=== PATIENT | male | born 1955 | race Two or more races ===

== ENCOUNTER → 2017-10-07 | Outpatient (REF) | payer OTHER ==
[2017-10-07 16:55] LABS: BASO % 0.5 % (0.0-1.0); EOS # 0.3 10^3/uL (0.0-0.50); EOS % 3.3 % (0.0-3.0); IMMATURE GRANULOCYTE % 0.3 % (0-0); LYMPH # 1.6 10^3/uL (1.5-4.5); LYMPH % 20.4 % (24.0-44.0); MEAN CORPUSCULAR HGB CONC 32.5 g/dl (32.0-36.5); MEAN CORPUSCULAR VOLUME 86.1 fl (80.0-96.0); MONO # 0.6 10^3/uL (0.0-0.8); MONO % 7.9 % (0.0-5.0); NEUTROPHILS # 5.1 10^3/uL (1.8-7.7); NEUTROPHILS % 67.6 % (36.0-66.0); PLATELET COUNT, AUTOMATED 270 10^3/uL (150-450); RED CELL DISTRIBUTION WIDTH 12.6 % (11.5-14.5); WHITE BLOOD COUNT 7.6 10^3/uL (4.0-10.0)
[2017-10-07 17:41] LABS: ALBUMIN/GLOBULIN RATIO 1.43 (1.00-1.93); ALKALINE PHOSPHATASE 90 U/L (45-117); ALT/SGPT 25 U/L (12-78); ANION GAP 9 MEQ/L (8-16); AST/SGOT 20 U/L (7-37); BILIRUBIN,TOTAL 0.4 MG/DL (0.2-1.0); BLOOD UREA NITROGEN 14 MG/DL (7-18); CARBON DIOXIDE LEVEL 30 MEQ/L (21-32); CHLORIDE LEVEL 103 MEQ/L (98-107); CHOLESTEROL LEVEL 239 MG/DL (<200); CREATININE FOR GFR 0.84 MG/DL (0.70-1.30); GLOMERULAR FILTRATION RATE > 60.0 (>49); GLUCOSE, FASTING 87 MG/DL (80-110); POTASSIUM SERUM 4.1 MEQ/L (3.5-5.1); SODIUM LEVEL 142 MEQ/L (136-145); TOTAL PROTEIN 6.8 GM/DL (6.4-8.2); TRIGLYCERIDES LEVEL 268 MG/DL (<150)
== END ==
LOC: M SFHCCAPE 07:49
PROVIDERS: ATTEND Physician Assistant
DX: F41.9 Anxiety disorder, unspecified (principal); E66.09 Other obesity due to excess calories; Z68.30 Body mass index [BMI] 30.0-30.9, adult; Z12.5 Encounter for screening for malignant neoplasm of prostate

== ENCOUNTER → 2018-02-24 | Outpatient (CLI) | payer OTHER ==
[~2018-02-24] MED LIST: ISOVUE-370 76% 100ML VIAL (Q9967) As Ordered
== END ==
LOC: M RAD 15:14
DX: R59.0 Localized enlarged lymph nodes (principal)
CPT/HCPCS: Q9967

== ENCOUNTER → 2018-03-04 | Outpatient (CLI) | payer OTHER | LOC: M RAD 12:23 | DX: M51.26 Other intervertebral disc displacement, lumbar region (principal); M47.816 Spondylosis without myelopathy or radiculopathy, lumbar region | CPT/HCPCS: 72148 ==

== ENCOUNTER → 2019-01-22 | Outpatient (REF) | payer OTHER | LOC: M SFHCPLAZ 18:28 | PROVIDERS: ATTEND Dermatology | DX: D23.4 Other benign neoplasm of skin of scalp and neck (principal) ==

== ENCOUNTER → 2019-03-03 | Outpatient (REF) | payer OTHER ==
[2019-03-03 17:02] LABS: BASO % 0.5 % (0.0-1.0); EOS # 0.2 10^3/uL (0.0-0.50); EOS % 2.7 % (0.0-3.0); HEMATOCRIT 48.1 % (42.0-52.0); HEMOGLOBIN 15.7 g/dl (13.5-17.5); LYMPH # 1.6 10^3/uL (1.5-4.5); LYMPH % 20.2 % (24.0-44.0); MEAN CORPUSCULAR HEMOGLOBIN 28.3 pg (27.0-33.0); MEAN CORPUSCULAR HGB CONC 32.6 g/dl (32.0-36.5); MEAN CORPUSCULAR VOLUME 86.8 fl (80.0-96.0); MONO # 0.6 10^3/uL (0.0-0.8); NEUTROPHILS # 5.4 10^3/uL (1.8-7.7); NEUTROPHILS % 69.2 % (36.0-66.0); PLATELET COUNT, AUTOMATED 250 10^3/uL (150-450); RED BLOOD COUNT 5.54 10^6/uL (4.30-6.10); WHITE BLOOD COUNT 7.8 10^3/uL (4.0-10.0)
[2019-03-03 17:18] LABS: ALBUMIN 4.1 GM/DL (3.2-5.2); ALT/SGPT 30 U/L (12-78); BILIRUBIN,TOTAL 0.8 MG/DL (0.2-1.0); BLOOD UREA NITROGEN 15 MG/DL (7-18); C REACTIVE PROTEIN QUANTITATIV < 0.30 MG/DL (0.00-0.30); CALCIUM LEVEL 8.4 MG/DL (8.8-10.2); CARBON DIOXIDE LEVEL 26 MEQ/L (21-32); CHLORIDE LEVEL 107 MEQ/L (98-107); CHOLESTEROL LEVEL 233 MG/DL (<200); CHOLESTEROL RISK RATIO 4.236 (<5); CREATININE FOR GFR 0.85 MG/DL (0.70-1.30); GLOMERULAR FILTRATION RATE > 60.0 (>49); GLUCOSE, FASTING 91 MG/DL (70-100); HDL CHOLESTEROL 55 MG/DL (>40); LDL CHOLESTEROL 158 MG/DL (<100); NON-HDL-C 178 MG/DL; POTASSIUM SERUM 4.1 MEQ/L (3.5-5.1); RHEUMATOID FACTOR QUANT < 10.0 IU/ML (<15.0); SODIUM LEVEL 140 MEQ/L (136-145); THYROID STIMULATING HORMONE 0.633 uIU/ML (0.358-3.740); TOTAL PROTEIN 6.5 GM/DL (6.4-8.2); TRIGLYCERIDES LEVEL 101 MG/DL (<150)
[2019-03-03 18:03] LABS: ERYTHROCYTE SEDIMENTATION RATE 2 mm/hr (0-20)
[2019-03-06 00:07] LABS: ANA (HEP2) Negative (.); CYCLIC CITRULLINATED PEPTIDE 14 units (0-19); ENDOMYSIAL ABY IgA Negative (Negative); Lyme Disease IgG/IgM Antibodie <0.91 ISR (0.00-0.90); Lyme Disease IgM Ab Quantitati <0.80 index (0.00-0.79)
== END ==
LOC: M SFHCCAPE 10:37
PROVIDERS: ATTEND Physician Assistant
DX: R21 Rash and other nonspecific skin eruption (principal); E78.1 Pure hyperglyceridemia; R19.4 Change in bowel habit

== ENCOUNTER → 2019-11-03 | Outpatient (REF) | payer OTHER | LOC: M LAB REF 19:04 | PROVIDERS: ATTEND Dermatology | DX: L30.9 Dermatitis, unspecified (principal) ==

== ENCOUNTER → 2020-04-04 | Outpatient (REF) | payer OTHER ==
[2020-04-04 11:43] LABS: BASO # 0.1 10^3/uL (0.0-0.2); BASO % 0.7 % (0.0-1.0); EOS # 0.3 10^3/uL (0.0-0.5); EOS % 3.9 % (0.0-3.0); HEMATOCRIT 46.3 % (42.0-52.0); LYMPH # 1.7 10^3/uL (1.5-5.0); LYMPH % 24.3 % (24.0-44.0); MEAN CORPUSCULAR HEMOGLOBIN 28.1 pg (27.0-33.0); MEAN CORPUSCULAR HGB CONC 32.4 g/dl (32.0-36.5); MEAN CORPUSCULAR VOLUME 86.7 fl (80.0-96.0); MONO # 0.6 10^3/uL (0.0-0.8); MONO % 8.3 % (0.0-5.0); NEUTROPHILS # 4.4 10^3/uL (1.5-8.5); NEUTROPHILS % 62.5 % (36.0-66.0); PLATELET COUNT, AUTOMATED 249 10^3/uL (150-450); RED BLOOD COUNT 5.34 10^6/uL (4.30-6.10)
[2020-04-04 12:00] LABS: ALBUMIN 3.7 GM/DL (3.2-5.2); ALT/SGPT 21 U/L (12-78); BILIRUBIN,TOTAL 0.6 MG/DL (0.2-1.0); BLOOD UREA NITROGEN 16 MG/DL (7-18); CALCIUM LEVEL 8.7 MG/DL (8.8-10.2); CARBON DIOXIDE LEVEL 29 MEQ/L (21-32); CHLORIDE LEVEL 106 MEQ/L (98-107); CHOLESTEROL LEVEL 217 MG/DL (<200); CHOLESTEROL RISK RATIO 4.822 (<5); CREATININE FOR GFR 0.72 MG/DL (0.70-1.30); FREE T4 0.96 NG/DL (0.76-1.46); GLOMERULAR FILTRATION RATE > 60.0 (>49); GLUCOSE, FASTING 95 MG/DL (70-100); HDL CHOLESTEROL 45 MG/DL (>40); LDL CHOLESTEROL 133 MG/DL (<100); NON-HDL-C 172 MG/DL; POTASSIUM SERUM 4.2 MEQ/L (3.5-5.1); SODIUM LEVEL 139 MEQ/L (136-145); THYROID STIMULATING HORMONE 0.765 uIU/ML (0.358-3.740); TOTAL PROTEIN 6.3 GM/DL (6.4-8.2); TRIGLYCERIDES LEVEL 195 MG/DL (<150)
[2020-04-04 12:26] LABS: HEMOGLOBIN A1c 5.9 %
[2020-04-04 12:34] LABS: TOTAL 25(OH) VITAMIN D 47.1 NG/ML (30.0-100.0)
== END ==
LOC: M SFHCCLAY 08:29
PROVIDERS: ATTEND Physician Assistant
DX: E78.1 Pure hyperglyceridemia (principal); Z68.30 Body mass index [BMI] 30.0-30.9, adult

== ENCOUNTER → 2021-01-19 | Outpatient (CLI) | payer MEDICARE, OTHER ==
--- NOTE | 2021-01-19 16:15 | REP ---
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 COMPARISON: Comparison chest x-ray January 04, 2009. TECHNIQUE: Two views.. FINDINGS: The lungs are well inflated and free of infiltrate. The pleural angles are sharp. The heart size is normal. Pulmonary vasculature is not increased. No significant bony abnormality is seen. Thoracic aorta is somewhat tortuous. There is an orthopedic anchor in the right shoulder. IMPRESSION: No active disease.. <Electronically signed by Luca Gusman > 01/19/21 [id number]
== END ==
LOC: M CLY 14:35
PROVIDERS: ATTEND Nurse Practitioner Family
DX: Z01.818 Encounter for other preprocedural examination (principal); G47.33 Obstructive sleep apnea (adult) (pediatric); M17.11 Unilateral primary osteoarthritis, right knee

== ENCOUNTER → 2021-01-19 | Outpatient (REF) | payer MEDICARE ==
[2021-01-20 11:47] LABS: BASO # 0.1 10^3/uL (0.0-0.2); BASO % 0.8 % (0.0-1.0); EOS # 0.2 10^3/uL (0.0-0.5); EOS % 2.3 % (0.0-3.0); HEMATOCRIT 49.1 % (42.0-52.0); HEMOGLOBIN 16.1 g/dl (13.5-17.5); LYMPH # 1.7 10^3/uL (1.5-5.0); LYMPH % 20.2 % (24.0-44.0); MEAN CORPUSCULAR HEMOGLOBIN 28.5 pg (27.0-33.0); MEAN CORPUSCULAR HGB CONC 32.8 g/dl (32.0-36.5); MEAN CORPUSCULAR VOLUME 86.9 fl (80.0-96.0); MONO # 0.7 10^3/uL (0.0-0.8); NEUTROPHILS # 5.7 10^3/uL (1.5-8.5); NEUTROPHILS % 68.5 % (36.0-66.0); PLATELET COUNT, AUTOMATED 277 10^3/uL (150-450); RED BLOOD COUNT 5.65 10^6/uL (4.30-6.10); WHITE BLOOD COUNT 8.3 10^3/uL (4.0-10.0)
[2021-01-20 12:04] LABS: HEMOGLOBIN A1c 5.3 %
[2021-01-20 12:33] LABS: ALT/SGPT 23 U/L (12-78); BILIRUBIN,TOTAL 0.2 MG/DL (0.2-1.0); BLOOD UREA NITROGEN 15 MG/DL (7-18); CALCIUM LEVEL 8.9 MG/DL (8.8-10.2); CARBON DIOXIDE LEVEL 26 MEQ/L (21-32); CHLORIDE LEVEL 108 MEQ/L (98-107); CHOLESTEROL LEVEL 219 MG/DL (<200); CHOLESTEROL RISK RATIO 5.214 (<5); CREATININE FOR GFR 0.82 MG/DL (0.70-1.30); FREE T4 0.93 NG/DL (0.76-1.46); GLOMERULAR FILTRATION RATE > 60.0 (>49); GLUCOSE, FASTING 84 MG/DL (70-100); HDL CHOLESTEROL 42 MG/DL (>40); LDL CHOLESTEROL 113 MG/DL (<100); NON-HDL-C 177 MG/DL; SODIUM LEVEL 141 MEQ/L (136-145); THYROID STIMULATING HORMONE 0.591 uIU/ML (0.358-3.740); TOTAL PROTEIN 6.6 GM/DL (6.4-8.2); TRIGLYCERIDES LEVEL 322 MG/DL (<150)
== END ==
LOC: M SFHCCLAY 13:36
PROVIDERS: ATTEND Nurse Practitioner Family
DX: M17.11 Unilateral primary osteoarthritis, right knee (principal); R73.09 Other abnormal glucose; E78.1 Pure hyperglyceridemia
CPT/HCPCS: 80053; 80061; 83036; 84439; 84443; 85025; G0463

== ENCOUNTER → 2021-01-24 | Outpatient (REF) | payer MEDICARE ==
[2021-01-24 15:50] LABS: INR 0.86; PROTHROMBIN TIME 11.9 SECONDS (12.5-14.3)
== END ==
LOC: M PLALAB 15:01
PROVIDERS: ATTEND Orthopaedic Surgery
DX: M17.11 Unilateral primary osteoarthritis, right knee (principal); Z79.01 Long term (current) use of anticoagulants

== ENCOUNTER → 2021-09-29 | Outpatient (CLI) | payer MEDICARE ==
[~2021-09-29] MED LIST changes: +ISOVUE-300 61% 50ML VIAL As Ordered ONE; -ISOVUE-370 76% 100ML VIAL (Q9967) As Ordered; +LIDOCAINE 1% MDV 20ML VIAL As Ordered ONE; +TRIAMCINOLONE ACETONIDE SUSP 40 MG/ML VIAL (J3301) As Ordered ONE
--- NOTE | 2021-09-29 17:40 | REP ---
INDICATION: OSTEOARTHRITIS RT SHOULDER. COMPARISON: None TECHNIQUE: The procedure was performed by CAROLINE Ag, under the direct supervision of Dr. Ye. The benefits and risks of the procedure were explained to the patient, and an informed consent was obtained. Directly prior to the start of the procedure, a formal time-out was completed in the procedure room. The right shoulder joint space was localized using fluoroscopic guidance. The skin was prepped and draped in a sterile fashion. Approximately 5 mL of 1% Lidocaine 10 mg/ml was used as a local anesthetic. Using fluoroscopic guidance, a #22 gauge spinal needle was inserted and advanced into the right shoulder joint space. Approximately 2 mL of Isovue 300 was injected to verify placement. Six mL of a solution containing 5 mL 1% lidocaine 10 mg/ml and 1 mL Kenalog 40 mg/mL was injected into the joint space. The needle was removed and hemostasis was achieved. FINDINGS: The patient tolerated the procedure well and there were no immediate complications. IMPRESSION: 1. Technically successful right shoulder injection. 0.1 minutes of fluoroscopy time was utilized for this procedure. Some fluoroscopic images are performed with last image hold technology. These images require no additional radiation. <Electronically signed by Belle Villareal > 09/29/21 [id number] <Electronically signed by Gilberto Ye > 09/29/21 [id number]
== END ==
LOC: M RADPRO 10:43
PROVIDERS: ATTEND Physician Assistant
DX: M19.011 Primary osteoarthritis, right shoulder (principal)
CPT/HCPCS: 20610; 77002; J3301; Q9967

== ENCOUNTER → 2021-12-25 | Outpatient (CLI) | payer MEDICARE | LOC: M PLAIMG 09:00 | PROVIDERS: ATTEND Orthopaedic Surgery | DX: M54.12 Radiculopathy, cervical region (principal); M50.30 Other cervical disc degeneration, unspecified cervical region; M48.02 Spinal stenosis, cervical region; M25.78 Osteophyte, vertebrae; M47.812 Spondylosis without myelopathy or radiculopathy, cervical region ==

== ENCOUNTER → 2022-01-09 | Outpatient (CLI) | payer MEDICARE | LOC: M RAD 10:47 | PROVIDERS: ATTEND Physician Assistant Medical | DX: R06.02 Shortness of breath (principal); R05.9 Cough, unspecified ==

== ENCOUNTER → 2022-02-28 | Outpatient (CLI) | payer MEDICARE ==
[~2022-02-28] MED LIST changes: +A-10CAP2 PO; +ALBU8.5H INH; +ALBU83IN INH; +ALPR1TAB3 PO; +CYCL-707 PO; +FLUC150T9 PO; +GABA-1171 PO; -ISOVUE-300 61% 50ML VIAL As Ordered ONE; +K2 P1TAB PO; -LIDOCAINE 1% MDV 20ML VIAL As Ordered ONE; +MELO15TA28 PO; +SERT50TA29 PO; -TRIAMCINOLONE ACETONIDE SUSP 40 MG/ML VIAL (J3301) As Ordered ONE; +VITA-243 PO
== END ==
LOC: M LABSMTC 09:30
PROVIDERS: ATTEND Anesthesiology
DX: Z01.818 Encounter for other preprocedural examination (principal); Z11.52 Encounter for screening for COVID-19

== ENCOUNTER → 2022-02-28 | Outpatient (CLI) | payer MEDICARE ==
[2022-02-28 13:40] LABS: BASO % 0.4 % (0.0-1.0); EOS # 0.3 10^3/uL (0.0-0.5); EOS % 3.7 % (0.0-3.0); HEMATOCRIT 48.4 % (42.0-52.0); HEMOGLOBIN 15.5 g/dl (13.5-17.5); LYMPH # 1.4 10^3/uL (1.5-5.0); LYMPH % 20.4 % (24.0-44.0); MEAN CORPUSCULAR HEMOGLOBIN 28.5 pg (27.0-33.0); MEAN CORPUSCULAR VOLUME 89.1 fl (80.0-96.0); MONO # 0.6 10^3/uL (0.0-0.8); MONO % 9.2 % (2.0-8.0); NEUTROPHILS # 4.5 10^3/uL (1.5-8.5); PLATELET COUNT, AUTOMATED 277 10^3/uL (150-450); RED BLOOD COUNT 5.43 10^6/uL (4.30-6.10); WHITE BLOOD COUNT 6.8 10^3/uL (4.0-10.0)
[2022-02-28 18:42] LABS: ALT/SGPT 25 U/L (12-78); BILIRUBIN,TOTAL 0.5 MG/DL (0.2-1.0); BLOOD UREA NITROGEN 21 MG/DL (7-18); CALCIUM LEVEL 9.6 MG/DL (8.8-10.2); CARBON DIOXIDE LEVEL 29 MEQ/L (21-32); CHLORIDE LEVEL 107 MEQ/L (98-107); CHOLESTEROL LEVEL 248 MG/DL (<200); CHOLESTEROL RISK RATIO 4.862 (<5); CREATININE FOR GFR 0.74 MG/DL (0.70-1.30); GLOMERULAR FILTRATION RATE > 60.0 (>49); GLUCOSE, FASTING 98 MG/DL (70-100); HDL CHOLESTEROL 51 MG/DL (>40); LDL CHOLESTEROL 176 MG/DL (<100); NON-HDL-C 197 MG/DL; POTASSIUM SERUM 4.4 MEQ/L (3.5-5.1); SODIUM LEVEL 141 MEQ/L (136-145); TOTAL 25(OH) VITAMIN D 68.7 NG/ML (30.0-100.0); TOTAL PROTEIN 6.2 GM/DL (6.4-8.2); TRIGLYCERIDES LEVEL 106 MG/DL (<150)
[2022-02-28 21:58] LABS: HEMOGLOBIN A1c 5.4 %
== END ==
LOC: M PLALAB 09:12
PROVIDERS: ATTEND Physician Assistant
DX: E78.1 Pure hyperglyceridemia (principal); R73.09 Other abnormal glucose; Z12.5 Encounter for screening for malignant neoplasm of prostate; Z79.899 Other long term (current) drug therapy
CPT/HCPCS: 36415; 80053; 80061; 82306; 83036; 84443; 85025; 87426; G0103

== ENCOUNTER 2022-03-01 07:09 | Day surgery (SDC) | payer MEDICARE ==
[~2022-03-01] VITALS: Ht 175.3 cm; Wt 88.6 kg
[~2022-03-01 07:09] MED LIST changes: -A-10CAP2 PO; -ALBU8.5H INH; -ALBU83IN INH; +ALBUTEROL SULFATE 2.5 MG/0.5 ML INH NEB SOLN INH ONE; -FLUC150T9 PO; -K2 P1TAB PO; +LIDOCAINE 1% MDV 20ML VIAL As Ordered ONE; +LIDOCAINE 4% INJ 5ML AMP INH ONE; +LR 1,000 ML IV ONE; -MELO15TA28 PO; -SERT50TA29 PO; +THROMBIN SOLN 5,000 UNITS VIAL As Ordered ONE; -VITA-243 PO
[2022-03-01] MEDS ORDERED: EPINEPHrine 1MG/10ML SYRINGE 1.5IN As Ordered ONE (07:10)
[2022-03-01] MEDS ORDERED: CETACAINE SPRAY 5GM As Ordered ONE (07:10)
[2022-03-01] MEDS ORDERED: LIDOCAINE VISCOUS 2% SOLN 15ML UDC As Ordered ONE (07:10)
[2022-03-01 08:19] LABS: INR 0.97; PROTHROMBIN TIME 13.3 SECONDS (12.7-14.5)
[2022-03-01 08:20] LABS: PARTIAL THROMBOPLASTIN TIME 28.2 SECONDS (25.9-37.0)
[2022-03-01] MEDS ORDERED: A-10CAP2 PO (08:20)
[2022-03-01] MEDS ORDERED: FLUC150T9 PO (08:20)
[2022-03-01] MEDS ORDERED: ALBU83IN INH (08:20)
[2022-03-01] MEDS ORDERED: ALBU8.5H INH (08:20)
[2022-03-01] MEDS ORDERED: K2 P1TAB PO (08:20)
[2022-03-01] MEDS ORDERED: SERT50TA29 PO (08:20)
[2022-03-01] MEDS ORDERED: VITA-243 PO (08:20)
[2022-03-01] MEDS ORDERED: MELO15TA28 PO (08:20)
[2022-03-01] MEDS ORDERED: LIDOCAINE 2% 100MG/5ML SDV (FOR ANES.) As Ordered ONE (09:06)
[2022-03-01] MEDS ORDERED: fentaNYL 100 MCG/2 ML INJECTION As Ordered ONE (09:06)
[2022-03-01] MEDS ORDERED: MIDAZOLAM INJ 2MG/2ML VIAL (J2250 PER 1MG) As Ordered ONE (09:06)
[2022-03-01] MEDS ORDERED: ROCURONIUM BROMIDE 50 MG/5 ML VIAL As Ordered ONE (09:06)
[2022-03-01] MEDS ORDERED: propofoL 200 MG/20 ML VIAL As Ordered ONE (09:06)
[2022-03-01] MEDS ORDERED: ACETAMINOPHEN 1000MG 100ML IV BTL (OFIRMEV) (J0131 PER 10MG) As Ordered ONE (09:44)
[2022-03-01] MEDS ORDERED: SUGAMMADEX SODIUM 500 MG/5 ML VIAL (BRIDION) As Ordered ONE (10:32)
[2022-03-01] MEDS ORDERED: LR 1,000 ML IV SCH (10:50)
[2022-03-01] MEDS ORDERED: ONDANSETRON 4MG/2ML VIAL IV PRN (10:50)
[2022-03-01] MEDS ORDERED: ALBUTEROL SULFATE 2.5 MG/0.5 ML INH NEB SOLN INH ONE (10:50)
[2022-03-01] MEDS ORDERED: fentaNYL 100 MCG/2 ML INJECTION IV PRN (10:50)
[2022-03-01 11:10] VITALS: BP 127/71
== END 2022-03-01 11:40 | disposition home or self-care (01) ==
LOC: M SDC 07:09
PROVIDERS: ATTEND Internal Medicine Pulmonary Disease
DX: R59.0 Localized enlarged lymph nodes (principal); G47.00 Insomnia, unspecified; N40.0 Benign prostatic hyperplasia without lower urinary tract symptoms; Z79.899 Other long term (current) drug therapy; F41.9 Anxiety disorder, unspecified
CPT/HCPCS: 31622; 31654; 36415; 71045; 85610; 85730; 87070; 87102; 87116; 87205; 87206; 88173; 88305; J0131; J2250; J3010

== ENCOUNTER → 2022-03-08 | Outpatient (CLI) | payer MEDICARE ==
[~2022-03-08] MED LIST changes: +A-10CAP2 PO; +ALBU8.5H INH; +ALBU83IN INH; -ALBUTEROL SULFATE 2.5 MG/0.5 ML INH NEB SOLN INH ONE; +FLUC150T9 PO; +K2 P1TAB PO; -LIDOCAINE 1% MDV 20ML VIAL As Ordered ONE; -LIDOCAINE 4% INJ 5ML AMP INH ONE; -LR 1,000 ML IV ONE; +MELO15TA28 PO; +SERT50TA29 PO; -THROMBIN SOLN 5,000 UNITS VIAL As Ordered ONE; +VITA-243 PO
[2022-03-08 09:30] LABS: BASO % 0.7 % (0.0-1.0); EOS # 0.3 10^3/uL (0.0-0.5); EOS % 4.8 % (0.0-3.0); HEMATOCRIT 46.3 % (42.0-52.0); HEMOGLOBIN 15.2 g/dl (13.5-17.5); LYMPH # 1.1 10^3/uL (1.5-5.0); LYMPH % 19.9 % (24.0-44.0); MEAN CORPUSCULAR HEMOGLOBIN 28.6 pg (27.0-33.0); MEAN CORPUSCULAR HGB CONC 32.8 g/dl (32.0-36.5); MONO # 0.5 10^3/uL (0.0-0.8); NEUTROPHILS # 3.6 10^3/uL (1.5-8.5); NEUTROPHILS % 65.4 % (36.0-66.0); PLATELET COUNT, AUTOMATED 241 10^3/uL (150-450); RED BLOOD COUNT 5.32 10^6/uL (4.30-6.10); WHITE BLOOD COUNT 5.6 10^3/uL (4.0-10.0)
[2022-03-08 10:06] LABS: ALBUMIN 3.8 GM/DL (3.2-5.2); ALT/SGPT 21 U/L (12-78); BILIRUBIN,DIRECT < 0.1 MG/DL (0.0-0.2); BILIRUBIN,TOTAL 0.3 MG/DL (0.2-1.0); CALCIUM LEVEL 8.7 MG/DL (8.8-10.2); CREATININE FOR GFR 0.74 MG/DL (0.70-1.30); GLOMERULAR FILTRATION RATE > 60.0 (>49); TOTAL PROTEIN 6.1 GM/DL (6.4-8.2)
== END ==
LOC: M PLALAB 08:21 → M LAB 08:21
PROVIDERS: ATTEND Internal Medicine Pulmonary Disease
DX: R91.8 Other nonspecific abnormal finding of lung field (principal)

== ENCOUNTER → 2022-04-04 | Outpatient (REF) | payer MEDICARE, OTHER ==
[~2022-04-04] MED LIST changes: +ALBU2.5V10 INH; -ALBU83IN INH
[2022-04-04 16:43] LABS: BLOOD UREA NITROGEN 19 MG/DL (7-18); CREATININE FOR GFR 0.76 MG/DL (0.70-1.30); GLOMERULAR FILTRATION RATE > 60.0 (>49)
== END ==
LOC: M LABDRWCV 15:45
PROVIDERS: ATTEND Physician Assistant Medical
DX: G95.0 Syringomyelia and syringobulbia (principal)

== ENCOUNTER → 2022-04-09 | Outpatient (CLI) | payer MEDICARE, OTHER | LOC: M PLARAD 10:56 | PROVIDERS: ATTEND Internal Medicine Pulmonary Disease | DX: R59.0 Localized enlarged lymph nodes (principal); R91.8 Other nonspecific abnormal finding of lung field; C79.89 Secondary malignant neoplasm of other specified sites | CPT/HCPCS: 78815; A9552 ==

== ENCOUNTER → 2022-04-20 | Outpatient (CLI) | payer MEDICARE ==
[~2022-04-20] MED LIST changes: +PROHANCE 279.3MG/ML 15ML VIAL As Ordered ONE; +PROHANCE 279.3MG/ML 5ML VIAL As Ordered ONE
== END ==
LOC: M RAD 11:50
PROVIDERS: ATTEND Physician Assistant Medical
DX: G95.0 Syringomyelia and syringobulbia (principal); M79.601 Pain in right arm; M54.6 Pain in thoracic spine; M79.604 Pain in right leg
CPT/HCPCS: 72141; 72146; 72148; A9576

== ENCOUNTER → 2022-04-23 | Outpatient (CLI) | payer MEDICARE ==
[~2022-04-23] MED LIST changes: -PROHANCE 279.3MG/ML 15ML VIAL As Ordered ONE; +PROHANCE 279.3MG/ML 15ML VIAL ONE; -PROHANCE 279.3MG/ML 5ML VIAL As Ordered ONE; +PROHANCE 279.3MG/ML 5ML VIAL ONE
== END ==
LOC: M PLAIMG 11:06
PROVIDERS: ATTEND Otolaryngology
DX: R22.1 Localized swelling, mass and lump, neck (principal)
CPT/HCPCS: 70543; A9576

== ENCOUNTER → 2022-05-09 | Outpatient (CLI) | payer MEDICARE | LOC: M PLAIMG 07:48 | PROVIDERS: ATTEND Physician Assistant Medical | DX: M51.36 Other intervertebral disc degeneration, lumbar region (principal); M43.06 Spondylolysis, lumbar region; M54.6 Pain in thoracic spine; G95.0 Syringomyelia and syringobulbia; M79.604 Pain in right leg; M79.605 Pain in left leg | CPT/HCPCS: 72142; 72147; 72149; A9576 ==

== ENCOUNTER → 2022-07-22 | Outpatient (CLI) | payer MEDICARE ==
[~2022-07-22] MED LIST changes: -PROHANCE 279.3MG/ML 15ML VIAL ONE; -PROHANCE 279.3MG/ML 5ML VIAL ONE
== END ==
LOC: M LABSMTC 10:39
PROVIDERS: ATTEND Neurological Surgery
DX: Z20.822 Contact with and (suspected) exposure to COVID-19 (principal)

== ENCOUNTER → 2022-10-10 | Outpatient (CLI) | payer OTHER | LOC: M LABSMTC 09:35 | PROVIDERS: ATTEND Psychiatry & Neurology Neurology | DX: Z01.818 Encounter for other preprocedural examination (principal); Z11.52 Encounter for screening for COVID-19 ==

== ENCOUNTER → 2022-11-01 | Outpatient (CLI) | payer MEDICAID, MEDICARE ==
[~2022-11-01] MED LIST changes: +GABA-283 PO
== END ==
LOC: M ONCR 07:46
PROVIDERS: ATTEND General Practice
DX: C72.0 Malignant neoplasm of spinal cord (principal); Z79.1 Long term (current) use of non-steroidal anti-inflammatories (NSAID); Z79.899 Other long term (current) drug therapy

== ENCOUNTER → 2022-11-27 | Outpatient (RCR) | payer MEDICARE | LOC: M ONCR 11-09 13:18 | PROVIDERS: ATTEND General Practice | DX: C72.0 Malignant neoplasm of spinal cord (principal) ==

== ENCOUNTER → 2022-12-25 | Outpatient (RCR) | payer MEDICARE ==
[~2022-12-25] MED LIST changes: +DEXA4TA PO; +DULO1CAP6 PO
== END ==
LOC: M ONCR 11-28 10:43
PROVIDERS: ATTEND General Practice
DX: C72.0 Malignant neoplasm of spinal cord (principal)

== ENCOUNTER 2023-01-04 09:52 | Outpatient (RCR) | payer MEDICARE | END 2023-01-25 | LOC: M ONCR 09:52 | PROVIDERS: ATTEND General Practice | DX: C72.0 Malignant neoplasm of spinal cord (principal) ==

== ENCOUNTER → 2023-01-15 | Outpatient (REF) | payer MEDICARE ==
[2023-01-15 18:51] LABS: BASO % 0.3 % (0.0-1.0); EOS # 0.2 10^3/uL (0.0-0.5); EOS % 3.3 % (0.0-3.0); HEMOGLOBIN 14.9 g/dl (13.5-17.5); LYMPH # 0.3 10^3/uL (1.5-5.0); LYMPH % 4.8 % (24.0-44.0); MEAN CORPUSCULAR HEMOGLOBIN 29.2 pg (27.0-33.0); MEAN CORPUSCULAR HGB CONC 33.1 g/dl (32.0-36.5); MEAN CORPUSCULAR VOLUME 88.2 fl (80.0-96.0); MONO # 0.7 10^3/uL (0.0-0.8); MONO % 11.9 % (2.0-8.0); NEUTROPHILS # 4.6 10^3/uL (1.5-8.5); NEUTROPHILS % 79.4 % (36.0-66.0); PLATELET COUNT, AUTOMATED 217 10^3/uL (150-450); WHITE BLOOD COUNT 5.8 10^3/uL (4.0-10.0)
[2023-01-15 18:59] LABS: HEMOGLOBIN A1c 5.1 % (4.0-6.0)
[2023-01-15 19:03] LABS: APPEARANCE, URINE CLEAR (CLEAR); BACTERIA, URINE AUTO NEGATIVE (NEGATIVE); BILIRUBIN, URINE AUTO NEGATIVE (NEGATIVE); BLOOD, URINE BLOOD NEGATIVE (NEGATIVE); COLOR, URINE YELLOW (YELLOW); GLUCOSE, URINE (UA) AUTO NEGATIVE (NEGATIVE); KETONE, URINE AUTO NEGATIVE (NEGATIVE); LEUKOCYTE ESTERASE, URINE AUTO NEGATIVE (NEGATIVE); NITRITE, URINE AUTO NEGATIVE (NEGATIVE); PROTEIN, URINE AUTO NEGATIVE (NEGATIVE); RBC, URINE AUTO 1 /HPF (0-3); SPECIFIC GRAVITY URINE AUTO 1.021 (1.002-1.035); SQUAMOUS EPITHELIAL CELL UR AU 0 /HPF (0-6); UROBILINOGEN, URINE AUTO 0.2 mg/dL (0.0-2.0); WBC, URINE AUTO 1 /HPF (0-3)
[2023-01-15 19:23] LABS: ALBUMIN 4.1 G/DL (3.2-5.2); ALKALINE PHOSPHATASE 82 U/L (46-116); ALT/SGPT 26 U/L (7.0-40); AST/SGOT 25 U/L (<34); BILIRUBIN,TOTAL 0.6 MG/DL (0.3-1.2); BLOOD UREA NITROGEN 17 MG/DL (9-23); CALCIUM LEVEL 9.1 MG/DL (8.3-10.6); CARBON DIOXIDE LEVEL 25 MMOL/L (20-31); CHLORIDE LEVEL 105 MMOL/L (98-107); CHOLESTEROL LEVEL 216 MG/DL (<200); CHOLESTEROL RISK RATIO 3.61 (<5); CREATININE FOR GFR 0.62 MG/DL (0.70-1.30); GLOMERULAR FILTRATION RATE > 60.0 (>49); GLUCOSE, FASTING 92 MG/DL (74-106); HDL CHOLESTEROL 59.7 MG/DL (>40); LDL CHOLESTEROL 133.3 MG/DL (<100); NON-HDL-C 156.3 MG/DL; POTASSIUM SERUM 4.2 MMOL/L (3.5-5.1); SODIUM LEVEL 139 MMOL/L (136-145); THYROID STIMULATING HORMONE 0.542 uIU/ML (0.55-4.78); TOTAL PROTEIN 6.3 G/DL (5.7-8.2); TRIGLYCERIDES LEVEL 115 MG/DL (<150)
== END ==
LOC: M SFHCCAPE 10:18
PROVIDERS: ATTEND Physician Assistant
DX: E78.1 Pure hyperglyceridemia (principal); R73.09 Other abnormal glucose; Z12.5 Encounter for screening for malignant neoplasm of prostate; Z79.899 Other long term (current) drug therapy

== ENCOUNTER → 2023-01-15 | Outpatient (REF) | payer MEDICARE ==
[2023-01-15 20:23] LABS: FOLATE > 24.0 NG/ML (>5.4)
[2023-01-15 20:25] LABS: VITAMIN B12 LEVEL 580 PG/ML (211-911)
[2023-01-15 21:43] LABS: RHEUMATOID FACTOR QUANT 4.7 IU/ML (<14)
[2023-01-23 06:08] LABS: ANTINUCLEAR ANTIBODIES DIRECT Negative (Negative); VITAMIN B1 LEVEL WHOLE BLOOD 159.4 nmol/L (66.5-200.0); VITAMIN B6,PYRIDOXAL PHOSPHATE 23.1 ug/L (3.4-65.2); VITAMIN E(ALPHA TOCOPHEROL) 11.2 mg/L (9.0-29.0); VITAMIN E(GAMMA TOCOPHEROL) 0.6 mg/L (0.5-4.9)
== END ==
LOC: M LABDRWCV 17:08
PROVIDERS: ATTEND Psychiatry & Neurology Neurology
DX: E53.8 Deficiency of other specified B group vitamins (principal); E51.9 Thiamine deficiency, unspecified; E53.1 Pyridoxine deficiency; E11.40 Type 2 diabetes mellitus with diabetic neuropathy, unspecified

== ENCOUNTER → 2023-02-26 | Outpatient (REF) | payer MEDICARE ==
[2023-02-26 19:08] LABS: ALBUMIN 3.9 G/DL (3.2-5.2); ALKALINE PHOSPHATASE 93 U/L (46-116); ALT/SGPT 26 U/L (7.0-40); AST/SGOT 24 U/L (<34); BILIRUBIN,TOTAL 0.5 MG/DL (0.3-1.2); BLOOD UREA NITROGEN 17 MG/DL (9-23); CALCIUM LEVEL 8.5 MG/DL (8.3-10.6); CARBON DIOXIDE LEVEL 29 MMOL/L (20-31); CHLORIDE LEVEL 104 MMOL/L (98-107); CREATININE FOR GFR 0.77 MG/DL (0.70-1.30); GLOMERULAR FILTRATION RATE > 60.0 (>49); GLUCOSE, FASTING 95 MG/DL (74-106); POTASSIUM SERUM 4.4 MMOL/L (3.5-5.1); SODIUM LEVEL 141 MMOL/L (136-145); TOTAL PROTEIN 6.1 G/DL (5.7-8.2)
== END ==
LOC: M LABDRWCV 17:46
PROVIDERS: ATTEND General Practice
DX: C72.0 Malignant neoplasm of spinal cord (principal)

== ENCOUNTER → 2023-03-26 | Outpatient (CLI) | payer MEDICARE ==
[~2023-03-26] MED LIST changes: +PROHANCE 279.3MG/ML 15ML VIAL As Ordered ONE; +PROHANCE 279.3MG/ML 5ML VIAL As Ordered ONE
== END ==
LOC: M RAD 10:12
PROVIDERS: ATTEND General Practice
DX: C72.0 Malignant neoplasm of spinal cord (principal)
CPT/HCPCS: 72157; A9576

== ENCOUNTER → 2023-04-09 | Outpatient (CLI) | payer MEDICARE, OTHER ==
[~2023-04-09] MED LIST changes: +CYMB60CA4 PO; +PREG150C PO; -PROHANCE 279.3MG/ML 15ML VIAL As Ordered ONE; -PROHANCE 279.3MG/ML 5ML VIAL As Ordered ONE; +ROPI2TAB3 PO
== END ==
LOC: M ONCR 10:45
PROVIDERS: ATTEND General Practice
DX: C72.0 Malignant neoplasm of spinal cord (principal); F17.210 Nicotine dependence, cigarettes, uncomplicated; Z71.2 Person consulting for explanation of examination or test findings; Z79.899 Other long term (current) drug therapy; Z92.3 Personal history of irradiation

== ENCOUNTER → 2023-07-31 | Outpatient (REF) | payer MEDICARE ==
[~2023-07-31] MED LIST changes: -GABA-283 PO; +GABA-284 PO; -PREG150C PO; +PREG150C2 PO; -ROPI2TAB3 PO; +ROPI2TAB46 PO
[2023-07-31 19:20] LABS: FREE T4 0.99 NG/DL (0.89-1.76); THYROID STIMULATING HORMONE 0.837 uIU/ML (0.55-4.78)
== END ==
LOC: M SFHCCLAY 09:51
PROVIDERS: ATTEND Physician Assistant
DX: R79.89 Other specified abnormal findings of blood chemistry (principal); Z79.899 Other long term (current) drug therapy

== ENCOUNTER → 2023-07-31 | Outpatient (REF) | payer MEDICARE ==
[2023-07-31 18:46] LABS: ALBUMIN 3.9 G/DL (3.2-5.2); ALKALINE PHOSPHATASE 85 U/L (46-116); ALT/SGPT 23 U/L (7.0-40); AST/SGOT 25 U/L (<34); BILIRUBIN,TOTAL 0.6 MG/DL (0.3-1.2); BLOOD UREA NITROGEN 18 MG/DL (9-23); CARBON DIOXIDE LEVEL 30 MMOL/L (20-31); CHLORIDE LEVEL 103 MMOL/L (98-107); CREATININE FOR GFR 0.91 MG/DL (0.70-1.30); GLOMERULAR FILTRATION RATE > 60.0 (>49); GLUCOSE, FASTING 132 MG/DL (74-106); POTASSIUM SERUM 4.7 MMOL/L (3.5-5.1); SODIUM LEVEL 139 MMOL/L (136-145); TOTAL PROTEIN 6.1 G/DL (5.7-8.2)
== END ==
LOC: M LABDRWCV 17:35
PROVIDERS: ATTEND General Practice
DX: C72.0 Malignant neoplasm of spinal cord (principal)

== ENCOUNTER → 2023-08-01 | Outpatient (CLI) | payer MEDICARE, MEDICAID ==
[~2023-08-01] MED LIST changes: +PROHANCE 279.3MG/ML 15ML VIAL As Ordered ONE; +PROHANCE 279.3MG/ML 5ML VIAL As Ordered ONE
== END ==
LOC: M RAD 10:22
PROVIDERS: ATTEND General Practice
DX: C72.0 Malignant neoplasm of spinal cord (principal)
CPT/HCPCS: 72157; A9576

== ENCOUNTER → 2023-08-22 | Outpatient (CLI) | payer MEDICARE, MEDICAID ==
[~2023-08-22] MED LIST changes: -PROHANCE 279.3MG/ML 15ML VIAL As Ordered ONE; -PROHANCE 279.3MG/ML 5ML VIAL As Ordered ONE
== END ==
LOC: M ONCR 11:01
PROVIDERS: ATTEND General Practice
DX: Z92.3 Personal history of irradiation (principal); G62.9 Polyneuropathy, unspecified; F17.210 Nicotine dependence, cigarettes, uncomplicated; Z71.2 Person consulting for explanation of examination or test findings; Z79.1 Long term (current) use of non-steroidal anti-inflammatories (NSAID); Z79.899 Other long term (current) drug therapy; C72.0 Malignant neoplasm of spinal cord

== ENCOUNTER → 2023-12-12 | Outpatient (CLI) | payer OTHER | LOC: M CLY 10:43 | PROVIDERS: ATTEND Physician Assistant Medical | DX: R05.3 Chronic cough (principal) ==

== ENCOUNTER → 2023-12-27 | Outpatient (CLI) | payer MEDICAID, MEDICARE, OTHER ==
[~2023-12-27] MED LIST changes: +PROHANCE 279.3MG/ML 15ML VIAL As Ordered ONE; +PROHANCE 279.3MG/ML 5ML VIAL As Ordered ONE
== END ==
LOC: M RAD 09:54
PROVIDERS: ATTEND General Practice
DX: C72.0 Malignant neoplasm of spinal cord (principal)
CPT/HCPCS: 72157; A9576

== ENCOUNTER → 2024-01-03 | Outpatient (CLI) | payer OTHER ==
[~2024-01-03] MED LIST changes: +MECL-86 PO; -PROHANCE 279.3MG/ML 15ML VIAL As Ordered ONE; -PROHANCE 279.3MG/ML 5ML VIAL As Ordered ONE
== END ==
LOC: M ONCR 10:47
PROVIDERS: ATTEND General Practice
DX: C72.0 Malignant neoplasm of spinal cord (principal); Z92.3 Personal history of irradiation; F17.210 Nicotine dependence, cigarettes, uncomplicated; Z71.2 Person consulting for explanation of examination or test findings; Z79.1 Long term (current) use of non-steroidal anti-inflammatories (NSAID); Z79.899 Other long term (current) drug therapy

== ENCOUNTER → 2024-01-09 | Outpatient (CLI) | payer OTHER | LOC: M CLY 11:12 | PROVIDERS: ATTEND Physician Assistant Medical | DX: J44.1 Chronic obstructive pulmonary disease with (acute) exacerbation (principal) ==

== ENCOUNTER → 2024-01-09 | Outpatient (REF) | payer OTHER ==
[2024-01-09 18:45] LABS: BASO # 0.1 10^3/uL (0.0-0.2); BASO % 0.8 % (0.0-1.0); EOS # 0.7 10^3/uL (0.0-0.5); EOS % 11.2 % (0.0-3.0); HEMATOCRIT 47.6 % (42.0-52.0); HEMOGLOBIN 15.4 g/dl (13.5-17.5); LYMPH # 1.2 10^3/uL (1.5-5.0); LYMPH % 20.5 % (24.0-44.0); MEAN CORPUSCULAR HEMOGLOBIN 28.6 pg (27.0-33.0); MEAN CORPUSCULAR HGB CONC 32.4 g/dl (32.0-36.5); MEAN CORPUSCULAR VOLUME 88.3 fl (80.0-96.0); MONO # 0.5 10^3/uL (0.0-0.8); MONO % 8.6 % (2.0-8.0); NEUTROPHILS # 3.6 10^3/uL (1.5-8.5); NEUTROPHILS % 58.7 % (36.0-66.0); PLATELET COUNT, AUTOMATED 205 10^3/uL (150-450); RED BLOOD COUNT 5.39 10^6/uL (4.30-6.10); WHITE BLOOD COUNT 6.1 10^3/uL (4.0-10.0)
[2024-01-09 19:13] LABS: ALBUMIN 3.8 G/DL (3.2-5.2); ALKALINE PHOSPHATASE 74 U/L (46-116); ALT/SGPT 31 U/L (7.0-40); AST/SGOT 29 U/L (<34); BILIRUBIN,TOTAL 0.8 MG/DL (0.3-1.2); BLOOD UREA NITROGEN 15 MG/DL (9-23); CARBON DIOXIDE LEVEL 28 MMOL/L (20-31); CHLORIDE LEVEL 104 MMOL/L (98-107); GLOMERULAR FILTRATION RATE > 60.0 (>49); GLUCOSE, FASTING 100 MG/DL (74-106); POTASSIUM SERUM 4.6 MMOL/L (3.5-5.1); SODIUM LEVEL 137 MMOL/L (136-145); TOTAL PROTEIN 6.1 G/DL (5.7-8.2)
[2024-01-09 19:24] LABS: PROCALCITONIN <0.04 ng/ml
== END ==
LOC: M SFHCCAPE 09:47
PROVIDERS: ATTEND Physician Assistant Medical
DX: J44.1 Chronic obstructive pulmonary disease with (acute) exacerbation (principal)

== ENCOUNTER → 2024-07-10 | Outpatient (CLI) | payer OTHER ==
[~2024-07-10] MED LIST changes: +LIDO30CR18 TOP; +LIDO5TD TOP
== END ==
LOC: M ONCR 11:12
PROVIDERS: ATTEND General Practice
DX: Z08 Encounter for follow-up examination after completed treatment for malignant neoplasm (principal); Z85.89 Personal history of malignant neoplasm of other organs and systems; G62.9 Polyneuropathy, unspecified; F17.210 Nicotine dependence, cigarettes, uncomplicated; Z79.899 Other long term (current) drug therapy; Z92.3 Personal history of irradiation

== ENCOUNTER 2025-08-11 09:46 | Day surgery (SDC) | payer MEDICARE ==
[~2025-08-11] VITALS: Ht 177.8 cm; Wt 87.8 kg
[~2025-08-11 09:46] MED LIST changes: +BACL10TA2 PO; +COLLPOW8 PO; +COQ150CH PO; +LIDOCAINE 3.5% 1 ML OPHTH TOPICAL GEL OU ONE; +MAGN120C3 PO; +MELA10CA6 PO; +PREG200C2 PO; +TAMS1CAP17 PO; +THERTAB52 PO; +TRAM50TA2 PO; +TRAZ-257 PO; +TRIPCAP5 PO; +VITAMIN B12 PO
[2025-08-11] MEDS ORDERED: MIDAZOLAM INJ 2 MG/2 ML VIAL As Ordered ONE (10:09)
[2025-08-11] MEDS ORDERED: POVIDONE-IODINE 5% OPHTH PREP SOL 30ML As Ordered ONE (13:00)
[2025-08-11] MEDS: LIDOCAINE 2% W/EPINEPHrine 20 ML VIAL **PRES FREE As Ordered ONE (13:47)
[2025-08-11] MEDS: TOBRADEX OPHTH OINT 3.5 GM As Ordered ONE (14:00)
[2025-08-11 14:20] VITALS: BP 151/78; TEMP 97.5; O2SAT 98
== END 2025-08-11 14:42 | disposition home or self-care (01) ==
LOC: M SDC 09:46
PROVIDERS: ATTEND Ophthalmology
DX: H11.002 Unspecified pterygium of left eye (principal); J44.9 Chronic obstructive pulmonary disease, unspecified; N40.0 Benign prostatic hyperplasia without lower urinary tract symptoms; G62.9 Polyneuropathy, unspecified; Z79.899 Other long term (current) drug therapy; Z79.1 Long term (current) use of non-steroidal anti-inflammatories (NSAID); Z92.3 Personal history of irradiation
CPT/HCPCS: 65426; 88304; J2250; J3010; J7315; Q4205